=== PATIENT | female | born 1940 | race Caucasian/White ===

== ENCOUNTER 2024-12-16 19:00 | Emergency (ER) | payer OTHER ==
[2024-12-16] MEDS ORDERED: HYDROCODONE/APAP 5/325 MG TAB ONE (19:25)
--- NOTE | 2024-12-16 20:22 | RAD REPORT ---
EXAMINATION: Femur Left CLINICAL INDICATION: Female, 84 years old. PAIN COMPARISON: PET CT 08/28/2008 VIEWS: As above FINDINGS: Left hip arthroplasty. There is a mildly displaced fracture at the subtrochanteric region that likely involves the arthroplasty. Peripheral vascular calcifications. Plate and screw at the left tibia.. IMPRESSION: Findings concerning for a left-sided periprosthetic subtrochanteric fracture with slight displacement .
--- NOTE | 2024-12-16 20:24 | RAD REPORT ---
EXAMINATION: Pelvis CLINICAL INDICATION: Female, 84 years old. fall COMPARISON: No prior exam. FINDINGS: Status post left hip arthroplasty. Mild deformity at the left superior inferior pubic ramus may repre sent a subacute or remote obturator ring fracture. No definite acute fracture. IMPRESSION: Left subtrochanteric periprosthetic fracture. Possible subacute or chronic left obturator ring fractu re.
--- NOTE | 2024-12-16 20:25 | RAD REPORT ---
EXAMINATION: Elbow Left 3 View CLINICAL INDICATION: Female, 84 years old. PAIN COMPARISON: No prior exam. VIEWS: As above FINDINGS: No acute fracture. No malalignment/dislocation. No significant focal degenerative change. Other: n/a IMPRESSION: No acute osseous abnormality.
--- NOTE | 2024-12-16 21:27 | RAD REPORT ---
EXAMINATION: CT ABDOMEN AND PELVIS WITHOUT CONTRAST CLINICAL INDICATION: Female, 84 years old.fall TECHNIQUE: CT abdomen and pelvis was performed, without IV contrast, as per department protocol. Axia l, sagittal and coronal reconstructions were obtained. One or more of the following dose reduction techniques were used: Automated exposure control, adjustment of the mA and/or kV according to the pat ient size, and/or iterative reconstruction. Unless otherwise specified, incidental findings do not require dedicated imaging follow-up. [id number]. IV CONTRAST: Not administered. COMPARISON: PET/CT 08/28/2008 FINDINGS: The lack of intravenous contrast limits the sensitivity of this exam for evaluation of solid visceral organs, vascular structures, and retroperitoneum. LOWER CHEST: Nodular airspace disease present in the right middle lobe and left lower lobe.No signifi cant pericardial effusion. Multivessel coronary artery calcifications. UPPER GI: No significant abnormality. LIVER: Benign appearing low density liver lesions. No suspicious mass. GALLBLADDER/BILE DUCTS: Cholelithiasis. Common bile duct measuring 8 mm likely within normal limits g iven the patient's age.? PANCREAS: No mass, ductal dilation, or fortunato-pancreatic fluid. SPLEEN: Unremarkable. ADRENALS: No adrenal masses. KIDNEYS AND URETERS: No hydronephrosis.Limited evaluation for renal lesions in the absence of IV cont rast.Pelvic caliectasis and hydroureter. Possible punctate renal calculi bilaterally. ABDOMINAL AORTA AND OTHER VESSELS: Mild atherosclerotic changes. PERITONEUM: No abnormal free fluid. No free air. LYMPH NODES: No pathologic lymphadenopathy. ABDOMINAL WALL: Unremarkable SMALL BOWEL/COLON: Small bowel has normal course and caliber. No colonic wall thickening or pericolon ic inflammatory changes.Moderate colonic stool. URINARY BLADDER: Underdistended but grossly unremarkable. REPRODUCTIVE ORGANS: Uterus surgically absent. No adnexal abnormality. MUSCULOSKELETAL: Mild superior end plate deformity at L5 is likely chronic. Left hip arthroplasty. Th ere is a subtrochanteric fracture that extends to the stem of the left hip arthroplasty and has up to 8 mm of displacement. Peripheral vascular calcifications. Remote left obturator ring fracture. Lik eric chronic bilateral sacral insufficiency fractures. Acute versus subacute right obturator ring fracture. This is nondisplaced and may be insufficiency related as well. ADDITIONAL FINDINGS: None. IMPRESSION: 1. Left subtrochanteric femur fracture which involves the left hip arthroplasty. 2. Probable subacute/chronic sacral insufficiency fractures. Right obturator ring fracture may be fro m insufficiency. 3. Nodular airspace disease in the lower lungs may reflect mild pneumonia and/or pneumonitis such as from aspiration. 4. Additional findings as noted above.
--- NOTE | 2024-12-16 22:24 | ER ---
Nurse's Notes [facility] Name: Renetta Zhao Age: 84 yrs Sex: Female : 1940 Arrival Date: 12/16/2024 Time: 19:00 Bed 18 Private MD: Diagnosis: Fall on same level, unspecified;Displaced Left Periprosthetic Subtrochanteric Fracture;UTI/ Urinary tract infection, site not specified;Hypokalemia Presentation: 12/16 19:14 Chief complaint: EMS states: Fall. Coronavirus screen: Client denies travel out of the [place] in the last 14 days. Ebola Screen: No symptoms or risks identified at this time. Initial Sepsis Screen: Does the patient meet any 2 criteria? No. Patient's initial sepsis screen is negative. Does the patient have a suspected source of infection? No. Patient's initial sepsis screen is negative. Risk Assessment: Do you want to hurt yourself or someone else? Patient reports no desire to harm self or others. Note Pt fell at home and complains of pain to her left hip and left shoulder pain of 6/10. Alert and oriented, afebrile, elevated BP of 207/85. On RA, no respiratory distress noted. Hx left hip joint ball replacement and a plate and screws in left mendieta, and left breast CA with masectomy. Onset of symptoms was December 16, 2024 at 17:00. 19:14 Method Of Arrival: EMS: [facility] ay 19:14 Acuity: MELL 3 ay Triage Assessment: 19:15 General: Appears in no apparent distress. uncomfortable, Behavior is calm, cooperative. ay Pain: Complains of pain in left hip, left shoulder Pain currently is 6 out of 10 on a pain scale. Quality of pain is described as. 19:15 EENT: No signs and/or symptoms were reported regarding the EENT system. Neuro: Level of ay Consciousness is awake, alert, Oriented to person, place, time, situation, Speech is normal. Cardiovascular: Capillary refill < 3 seconds. Respiratory: Airway is patent Respiratory effort is even, unlabored, Respiratory pattern is regular, symmetrical. GI: No signs and/or symptoms were reported involving the gastrointestinal system. : No signs and/or symptoms were reported regarding the genitourinary system. Derm: No signs and/or symptoms reported regarding the dermatologic system. Musculoskeletal: Reports pain in left hip and left shoulder. Injury Description: Bruise sustained to left elbow. Historical: - Allergies: 20:22 Sulfa (Sulfonamide Antibiotics); ay 20:22 Codeine; ay - Immunization history:: Adult Immunizations up to date. - Infectious Disease History:: Denies. - Social history:: Smoking status: Patient denies any tobacco usage or history of. Screenin:30 [facility] ED Fall Risk Assessment (Adult) History of falling in the last 3 months, ay including since admission Yes- single mechanical fall (1 pt) Confusion or Disorientation No (0 pts) Intoxicated or Sedated No (0 pts) Impaired Gait No (0 pts) Mobility Assist Device Used No (0 pt) Altered Elimination No (0 pt) Score/Fall Risk Level 0 - 2 = Low Risk Oriented to surroundings, Maintained a safe environment, Educated pt \T\ family on fall prevention, incl call for assistance when getting out of bed. Abuse screen: Denies threats or abuse. Denies injuries from another. Nutritional screening: No deficits noted. Tuberculosis screening: No symptoms or risk factors identified. Assessment: 20:30 General: See Triage Assessments. ay 12/17 00:38 Reassessment: Patient appears in no apparent distress at this time. ay Vital Signs: 12/16 19:14 BP 207 / 85; Pulse 74; Resp 20; Temp 97.6; Pulse Ox 96% on R/A; ay 21:53 BP 190 / 80; Pulse 84; Resp 17; Pulse Ox 97% on R/A; ay 23:00 BP 154 / 63; Pulse 78; Resp 17; Pulse Ox 94% on 2 lpm NC; ay 12/17 00:37 BP 138 / 58; Pulse 83; Resp 20; Pulse Ox 94% on 2 lpm NC; ay [place] Coma Score: 12/16 20:30 Eye Response: spontaneous(4). Motor Response: obeys commands(6). Verbal Response: ay oriented(5). Total: 15. ED Course: 19:14 Patient arrived in ED. rv1 19:16 Gulshan Lopez PA is PHCP. cp 19:16 Valentín Gallegos MD is Attending Physician. cp 19:21 Jai Delaney RN is Primary Nurse. ay 20:06 XRAY Pelvis In Process Unspecified. EDMS 20:06 XRAY Elbow LEFT 3 view In Process Unspecified. EDMS 20:06 XRAY Femur LEFT In Process Unspecified. EDMS 20:22 Triage completed. ay 20:30 Inserted saline lock: 22 gauge. Oxygen administration via nasal cannula \T\ 2L/min. ay 21:00 Patient has correct armband on for positive identification. Bed in low position. Call ay light in reach. Side rails up X2. Adult w/ patient. 21:06 CT Abd/Pelvis - Without Contrast In Process Unspecified. EDMS 22:20 XRAY Chest (1 view) In Process Unspecified. EDMS 12/17 01:11 Patient transferred, IV remains in place. ay 01:12 No provider procedures requiring assistance completed. ay 01:12 Arm band placed on right wrist. ay Administered Medications: 12/16 19:29 Drug: HYDROcodone-acetaminophen PO 5 mg-325 mg 1 tabs PO once Route: PO; ay 12/17 01:08 Follow up: Response: No adverse reaction ay 12/16 23:07 Drug: Ondansetron IVP 4 mg IVP once; over 2 minutes Route: IVP; Site: right antecubital;ay 12/17 01:08 Follow up: Response: No adverse reaction ay 12/16 23:07 Drug: hydrALAZINE IVP 10 mg IVP once Route: IVP; Site: right antecubital; ay 12/17 01:08 Follow up: Response: No adverse reaction ay 12/16 23:08 Drug: fentaNYL (PF) IVP 25 mcg IVP once Route: IVP; Site: right antecubital; ay 12/17 01:08 Follow up: Response: No adverse reaction ay 00:29 Drug: Potassium PO Effervescent Tablet 50 mEq PO once; dissolve in 4 ounces of water or ay juice Route: PO; 01:07 Follow up: Response: No adverse reaction ay 00:29 Drug: Potassium Chloride IV 20 mEq IV at calculated rate once; administer over 1-2 ay hours Route: IV; Rate: calculated rate; Site: right antecubital; 01:07 Follow up: Response: No adverse reaction ay 01:09 Follow up: Response: No adverse reaction; IV Status: Infusion continued upon transfer ay 00:29 Drug: Rocephin IV 1 grams IV at calculated rate once; Given slow IV push per pharmacy ay instructions Route: IV; Rate: calculated rate; Site: right antecubital; 01:07 Follow up: Response: No adverse reaction ay 01:09 Follow up: IV Status: Infusion continued upon transfer ay 00:29 Drug: NS 0.9% IV 500 ml 500 ml IV at 1 bolus once; to be given as a bolus over 60 ay minutes Volume: 500 ml; Route: IV; Rate: 1 bolus; Site: right antecubital; 01:08 Follow up: IV Status: Infusion continued upon transfer ay 01:07 Drug: fentaNYL (PF) IVP 25 mcg IVP once Route: IVP; Site: right antecubital; ay 01:10 Follow up: Response: No adverse reaction ay Medication: 01:12 VIS not applicable for this client. ay Outcome: 12/16 22:24 ER care complete, transfer ordered by MD. granda 12/17 01:11 Transferred to [facility], ay Condition: stable Instructed on the need for transfer, 01:13 Patient left the ED. ay Signatures: Dispatcher [employer] EDMS Gulshan Lopez PA PA cp Villegas, Rebecca rv1 Jai Delaney, RN RN ay
--- NOTE | 2024-12-16 22:24 | EDPHYS ---
Physician Documentation [facility] Name: Renetta Zhao Age: 84 yrs Sex: Female : 1940 Arrival Date: 12/16/2024 Time: 19:00 Bed 18 Private MD: ED Physician Valentín Gallegos HPI: 12/16 19:25 This 84 yrs old Female presents to ER via EMS with complaints of Fall Injury. cp 19:25 Details of fall: The patient fell from an upright position, while walking. Onset: The cp symptoms/episode began/occurred just prior to arrival. Associated injuries: The patient sustained pelvis and left femur, painful injury. Patient reports she was carrying groceries when she fell after tripping and injuring left elbow and left upper leg. Patient reports history of left hip replacement surgery. Historical: - Allergies: 20:22 Sulfa (Sulfonamide Antibiotics); ay 20:22 Codeine; ay - Immunization history:: Adult Immunizations up to date. - Infectious Disease History:: Denies. - Social history:: Smoking status: Patient denies any tobacco usage or history of. ROS: 19:30 MS/extremity: Positive for pain, tenderness, of the left elbow and left upper leg, cp 19:30 Eyes: Negative for injury, pain, redness, and discharge, cp 19:30 Constitutional: Negative for body aches, chills, fever, poor PO intake, 19:30 Cardiovascular: Negative for chest pain, palpitations, 19:30 Respiratory: Negative for cough, shortness of breath, wheezing, 19:30 Abdomen/GI: Negative for vomiting, diarrhea, constipation, 19:30 Neuro: Negative for altered mental status, headache, loss of consciousness, syncope, weakness, 19:30 All other systems are negative, Exam: 19:33 Constitutional: The patient appears in no acute distress, alert, awake, cp non-diaphoretic, non-toxic, well developed, uncomfortable, thin 19:33 Head/Face: Normocephalic, atraumatic. cp 19:33 Eyes: Periorbital structures: appear normal, Pupils: equal, round, and reactive to light and accomodation, Extraocular movements: intact throughout, Conjunctiva: normal, no exudate, no injection, Sclera: no appreciated abnormality, Lids and lashes: appear normal, bilaterally, 19:33 ENT: External ear(s): are unremarkable, Nose: is normal, Mouth: Lips: moist, Oral mucosa: moist, Posterior pharynx: Airway: no evidence of obstruction, patent, 19:33 Neck: C-spine: vertebral tenderness, is not appreciated, crepitus, is not appreciated, ROM/movement: limited range of motion, is not appreciated, nuchal rigidity, is not appreciated, 19:33 Chest/axilla: Inspection: normal, Palpation: crepitus, is not appreciated, tenderness, is not appreciated, 19:33 Cardiovascular: Rate: normal, Edema: is not appreciated, JVD: is not appreciated, 19:33 Respiratory: the patient does not display signs of respiratory distress, Respirations: normal, no use of accessory muscles, no retractions, labored breathing, is not present, Breath sounds: are clear throughout, no decreased breath sounds, no stridor, no wheezing, 19:33 Abdomen/GI: Inspection: abdomen appears normal, Palpation: abdomen is soft and non-tender, in all quadrants, 19:33 Back: vertebral tenderness, is not appreciated, 19:33 Musculoskeletal/extremity: Extremities: noted in the left elbow: abrasion, tenderness, There is no evidence of decreased ROM, deformity, noted in the left upper leg: pain, tenderness, ROM: limited passive range of motion due to pain, in the left hip, 19:33 Neuro: Orientation: to person, place \T\ time. Mentation: is normal, Motor: moves all fours, no focal deficits, Vital Signs: 19:14 BP 207 / 85; Pulse 74; Resp 20; Temp 97.6; Pulse Ox 96% on R/A; ay 21:53 BP 190 / 80; Pulse 84; Resp 17; Pulse Ox 97% on R/A; ay 23:00 BP 154 / 63; Pulse 78; Resp 17; Pulse Ox 94% on 2 lpm NC; ay 03 00:37 BP 138 / 58; Pulse 83; Resp 20; Pulse Ox 94% on 2 lpm NC; ay [place] Coma Score: 12/16 20:30 Eye Response: spontaneous(4). Motor Response: obeys commands(6). Verbal Response: ay oriented(5). Total: 15. MDM: 19:17 Medical Screening Exam initiated cp 21:35 Data reviewed: vital signs, nurses notes, radiologic studies, CT scan, plain films, and cp as a result, I will transfer patient for trauma and orthopedic services. 21:35 I considered the following discharge prescriptions or medication management in the emergency department Medications were administered in the Emergency Department. See MAR. Counseling: I had a detailed discussion with the patient and/or guardian regarding the historical points, exam findings, and any diagnostic results supporting the discharge/admit diagnosis, radiology results, the need to transfer to another facility, for higher level of care, [facility] does not immediately have the required specialist. 12/16 21:52 Order name: Basic Metabolic Panel; Complete Time: 23:52 cp 12/16 23:53 Interpretation: Normal except: K 2.4; GLUC 139; GFR 87. cp 12/16 21:52 Order name: CBC with Diff cp 12/16 23:53 Interpretation: Normal except: WBC 16.80; RBC 3.63; HGB 11.3; HCT 33.8; BEBA% 94.0; LYM% cp 2.7; MN% 2.9; NEUT A 15.8; LYMA 0.5. 12/16 21:52 Order name: LFT's; Complete Time: 23:52 cp 12/16 21:52 Order name: Magnesium; Complete Time: 23:52 cp 12/16 21:52 Order name: NT PRO-BNP; Complete Time: 23:52 cp 12/16 21:52 Order name: PT-INR; Complete Time: 23:52 cp 12/16 21:52 Order name: Troponin HS; Complete Time: 23:52 cp 12/16 21:52 Order name: Ptt, Activated; Complete Time: 23:52 cp 12/16 21:52 Order name: Urinalysis W/Microscopic; Complete Time: 23:52 cp 12/16 19:18 Order name: XRAY Pelvis; Complete Time: 21:19 cp 12/16 21:20 Interpretation: Report reviewed. cp 12/16 19:18 Order name: XRAY Elbow LEFT 3 view; Complete Time: 21:19 cp 12/16 21:20 Interpretation: Report reviewed. cp 12/16 19:18 Order name: XRAY Femur LEFT; Complete Time: 21:19 cp 12/16 20:23 Order name: CT Abd/Pelvis - Without Contrast; Complete Time: 21:31 cp 12/16 21:33 Interpretation: Report reviewed. 12/16 21:52 Order name: XRAY Chest (1 view); Complete Time: 22:39 12/16 21:52 Order name: Cardiac monitoring 12/16 21:52 Order name: EKG - Nurse/Tech 12/16 21:52 Order name: IV Saline Lock 12/16 21:52 Order name: Labs collected and sent 12/16 21:52 Order name: O2 Per Protocol 12/16 21:52 Order name: O2 Sat Monitoring 12/16 21:52 Order name: Martinez cp Administered Medications: 19:29 Drug: HYDROcodone-acetaminophen PO 5 mg-325 mg 1 tabs PO once Route: PO; ay 12/17 01:08 Follow up: Response: No adverse reaction ay 12/16 23:07 Drug: Ondansetron IVP 4 mg IVP once; over 2 minutes Route: IVP; Site: right antecubital;ay 12/17 01:08 Follow up: Response: No adverse reaction 12/16 23:07 Drug: hydrALAZINE IVP 10 mg IVP once Route: IVP; Site: right antecubital; ay 12/17 01:08 Follow up: Response: No adverse reaction ay 12/16 23:08 Drug: fentaNYL (PF) IVP 25 mcg IVP once Route: IVP; Site: right antecubital; ay 12/17 01:08 Follow up: Response: No adverse reaction ay : Drug: Potassium PO Effervescent Tablet 50 mEq PO once; dissolve in 4 ounces of water or ay juice Route: PO; 01:07 Follow up: Response: No adverse reaction ay : Drug: Potassium Chloride IV 20 mEq IV at calculated rate once; administer over 1-2 ay hours Route: IV; Rate: calculated rate; Site: right antecubital; 01:07 Follow up: Response: No adverse reaction ay 01:09 Follow up: Response: No adverse reaction; IV Status: Infusion continued upon transfer ay :29 Drug: Rocephin IV 1 grams IV at calculated rate once; Given slow IV push per pharmacy ay instructions Route: IV; Rate: calculated rate; Site: right antecubital; 01:07 Follow up: Response: No adverse reaction ay : Follow up: IV Status: Infusion continued upon transfer ay 00:29 Drug: NS 0.9% IV 500 ml 500 ml IV at 1 bolus once; to be given as a bolus over 60 ay minutes Volume: 500 ml; Route: IV; Rate: 1 bolus; Site: right antecubital; 01:08 Follow up: IV Status: Infusion continued upon transfer ay 01:07 Drug: fentaNYL (PF) IVP 25 mcg IVP once Route: IVP; Site: right antecubital; ay 01:10 Follow up: Response: No adverse reaction ay Disposition Summary: 12/16/24 22:24 Transfer Ordered Notes: Transfer Location: [facility] cp Reason: Higher level of care cp Condition: Stable cp Problem: new cp Symptoms: have improved cp Accepting Physician: DR Joyce(12/17/24 01:13) ay Diagnosis - Fall on same level, unspecified cp - Displaced Left Periprosthetic Subtrochanteric Fracture cp - UTI/ Urinary tract infection, site not specified cp - Hypokalemia cp Forms: - Medication Reconciliation Form cp - SBAR form cp Signatures: Dispatcher [employer] EDMS Gulshan Lopez PA PA cp Yakubu, Awudu RN RN ay Corrections: (The following items were deleted from the chart) 12/16 21:52 21:52 BASIC METABOLIC PANEL+C.LAB.BRZ ordered. EDMS EDMS 21:52 21:52 CBC+H.LAB.BRZ ordered. EDMS EDMS 21:52 21:52 HEPATIC FUNCTION+C.LAB.BRZ ordered. EDMS EDMS 21:52 21:52 MAGNESIUM+C.LAB.BRZ ordered. EDMS EDMS 21:52 21:52 PROBNP+C.LAB.BRZ ordered. EDMS EDMS 21:52 21:52 PROTIME (+INR)+COAG.LAB.BRZ ordered. EDMS EDMS 21:52 21:52 Troponin High Sensitivity+C.LAB.BRZ ordered. EDMS EDMS 21:52 21:52 PTT, ACTIVATED+COAG.LAB.BRZ ordered. EDMS EDMS 21:52 21:52 Chest Single View+RAD.RAD.BRZ ordered. EDMS EDMS 21:52 21:52 Urinalysis W/Microscopic+U.LAB.BRZ ordered. EDMS EDMS 22:41 22:24 doctor cp cp 22:45 22:41 doctor cp cp 23:59 22:45 DR Maria Del Carmen granda cp 12/17 01:13 12/16 23:59 DR Joyce cp ay
--- NOTE | 2024-12-16 22:36 | RAD REPORT ---
EXAM: Chest Single View HISTORY: 84 years Female fall COMPARISON: None. FINDINGS: LUNGS/PLEURA: Scattered areas of mild reticulonodular opacities. CARDIAC/MEDIASTINUM: The cardiac silhouette is within normal limits. UPPER ABDOMEN: No significant abnormality. BONES: No acute abnormality. LINES/TUBES/OTHER: Surgical clips in the left axilla. IMPRESSION: Mild scattered reticulonodular opacities likely reflecting infection or inflammation. No consolidativ e airspace disease
[2024-12-16] MEDS ORDERED: ONDANSETRON 4 MG/2 ML VIAL ONE (22:52)
[2024-12-16] MEDS ORDERED: HYDRALAZINE HCL 20 MG/ML VIAL ONE (22:52)
[2024-12-16] MEDS ORDERED: FENTANYL CITR 100 MCG/2 ML ONE (22:53)
[2024-12-16 22:54] LABS: Absolute Basophils 0.1 K/uL (0-0.5); Absolute Lymphocytes (CBC) 0.5 K/uL (0.7-4.9); Absolute Monocytes 0.5 K/uL (0.1-1.3); Absolute Neutrophil 15.8 K/uL (1.8-8.0); Basophils % 0.3 % (0-1.3); Eosinophils % 0.1 % (0-4.4); Hematocrit 33.8 % (36.0-45.0); Hemoglobin 11.3 g/dL (12.0-15.0); Lymphocytes % 2.7 % (15.3-44.8); MCH 31.2 pg (27.0-35.0); MCHC 33.5 g/dL (32.0-36.0); MCV 93.1 fL (80-100); MPV 8.6 fL (7.6-11.3); Monocytes % 2.9 % (3.3-12.3); Platelets 248 thou/uL (152-406); RBC Red Blood Cell Count 3.63 M/uL (3.86-4.86); Red Cell Distribution Width 13.1 % (12.1-15.2)
[2024-12-16 22:58] LABS: Specific Gravity 1.009 (1.005-1.030); Sqamous Epithelial <5 /HPF (None Seen); Urine Bacteria <20 /HPF (<20); Urine Bilirubin NEGATIVE (Negative); Urine Blood Negative (Negative); Urine Clarity Extremely Turbid (Clear); Urine Color Light-Yellow (Yellow); Urine Crystals Unidentified Few /HPF (None Seen); Urine Culture Reflex Order NOT NEEDED; Urine Glucose NEGATIVE (Negative); Urine Ketones NEGATIVE (Negative); Urine Micro Reflex YN NO BILL MICROSCOPIC; Urine Nitrite 1+ (Negative); Urine Protein NEGATIVE (Negative); Urine RBC <5 /HPF (None Seen); Urine Urobilinogen Normal (Normal); Urine WBC <5 /HPF (<5); Urine Yeast (Budding) Occasional /HPF (None Seen); Urine pH 7.5 (5.0-7.0)
[2024-12-16 23:06] LABS: PT Prothrombin Time 12.4 SECONDS (10.0-13.0); PTT, Activated Partial Thromb 31.3 SECONDS (24.3-36.9); Protime INR 1.09
[2024-12-16 23:38] LABS: Albumin 3.2 g/dL (3.4-5.0); Albumin/Globulin Ratio 0.8 (1.1-1.8); Anion Gap 8.4 mEq/L (5.0-15.0); Bilirubin Direct 0.2 mg/dL (0-0.2); Bilirubin Indirect, Calculated 0.4 mg/dL (0.2-0.8); Bilirubin Total 0.6 mg/dL (0.2-1.0); Globulin 4.1 g/dL (2.3-3.5); Magnesium 2.2 mg/dL (1.6-2.4); Potassium 2.4 mEq/L (3.5-5.1); Protein, Total 7.3 g/dL (6.4-8.2); Troponin High Sensitivity 14.3 pg/mL (<58.9)
[2024-12-17] MEDS ORDERED: POTASSIUM 25 MEQ EFFERV TAB ONE (00:14)
[2024-12-17] MEDS ORDERED: CEFTRIAXONE 1000 MG/VIAL ONE (00:14)
[2024-12-17] MEDS ORDERED: NA CHLORIDE 0.9% 500 ML ONE (00:14)
[2024-12-17] MEDS ORDERED: KCL 20 MEQ/100 mL IVPB 100 ML IV ONE (00:16)
[2024-12-17] MEDS ORDERED: FENTANYL CITR 100 MCG/2 ML ONE (00:49)
[2024-12-17 01:33] VITALS: TEMP 97.6
[2024-12-17 01:40] VITALS: O2SAT 94
[2024-12-17 01:41] VITALS: BP 138/58
[2024-12-17 02:13] LABS: Blood Morphology Comment NOT SEEN (NOT SEEN); Platelet Estimate ADEQ; White Blood Cell Scan OK (OK)
== END 2024-12-17 01:13 | disposition short-term general hospital (02) ==
LOC: ER 19:00
DX: S72.22XA Displaced subtrochanteric fracture of left femur, initial encounter for closed fracture (principal); M97.02XA Periprosthetic fracture around internal prosthetic left hip joint, initial encounter; W18.30XA Fall on same level, unspecified, initial encounter; N39.0 Urinary tract infection, site not specified; E87.6 Hypokalemia
CPT/HCPCS: 96365; 96368; 85025; 81001; 80048; 36415; 83735; 85610; 80076; 85730; 84484; 83880; 74176; 71045; 72170; 73080; 73552; 96375; 99285; J3480; J0360; J3010 ×2; J2405; J7040; J0696

== ENCOUNTER 2024-12-22 11:32 | Emergency (ER) | payer OTHER ==
--- OUTSIDE RECORDS SUMMARY | 2024-12-22 11:36 | XMS REPORT | Continuity of Care Document ---
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 12/17/2024 Chloride Lvl 103 12/17/2024 CO2 Lvl 30.8 12/17/2024 BUN 12 12/17/2024 Creatinine Lvl 0.72 12/17/2024 Glucose Lvl 148 (H) 12/17/2024 Imaging: Trauma CT CHEST ABDOMEN PELVIS W IV CONTRAST Result Date: 12/17/2024 EXAM: CT CHEST WITH CONTRAST EXAM: CT ABDOMEN AND PELVIS WITH CONTRAST DATE: 12/17/2024 5:27 INDICATION: Trauma COMPARISON: None TECHNIQUE: Volumetric CT of the chest, abdomen and pelvis is acquired following intravenous administration of contrast. Axial, coronal and sagittal images are provided. FINDINGS: Arm Maker: Note made of left hip arthroplasty Lines and tubes: None. Lower Neck: Supraclavicular soft tissues are within normal limits. Thoracic Aorta and Mediastinum: No mediastinal hematoma or thoracic aortic injury. Normal heart and pericardium. Lungs, Pleura, Diaphragm: No pulmonary contusions. Patchy consolidation and nodular opacities noted within the left lower and right middle lobes may represent aspiration or multifocal infection. Multifocal bilateral renal parenchymal scarring most pronounced in the left upper lobe and anterior left apex with associated mild bronchiectasis and adjacent pleural thickening. No pleural effusion or pneumothorax. No diaphragmatic injury. Liver and biliary tree: No injury. Multiple hepatic cysts of varying sizes measuring up to 4.39 cm in size. Gallbladder: Distended gallbladder. No injury. Pancreas: No injury. Small, 1.1 cm cystic lesion within the body of the pancreas which may represent IPMN. Spleen: No injury. Adrenals: No injury. Kidneys and ureters: No injury. Bladder: No injury. Reproductive organs: No injury. Gastrointestinal tract: No injury. Peritoneum and retroperitoneum: No fluid collections or free air. Lymph nodes: Normal. Vasculature: No vascular injury. Aortoiliac atherosclerotic calcifications. Spine/ Bones: Left hip arthroplasty in normal alignment. Minimally displaced perihardware proximal left femoral diaphyseal fracture is incompletely visualized. Acute minimally displaced fracture is noted through the root of the right superior pubic ramus (series ). Chronic healed left inferior pubic ramus fracture. Degenerative changes at the pubic symphysis. Chronic sclerosis along the bilateral sacrum. Multilevel degenerative changes of the thoracolumbar spine with levoscoliosis of the lumbar spine. Chronic deformity of the left humeral neck. Soft tissues: Normal. IMPRESSION: 1. Partially visualized left proximal femoral diaphyseal periprosthetic fracture. 2. Acute minimally displaced fracture through the root of the right superior pubic ramus (). 3. Patchy consolidative and nodular opacities within the left lower and right middle lobes concerning for aspiration or infection. Multifocal bilateral renal parenchymal scarring most pronounced in the left apex. 4. Multiple hepatic cysts. 5. Small cystic lesion within the body of the pancreas measuring 1.1 cm which could represent IPMN. Recommend correlation with nonemergent pancreatic protocol MRI findings. 6. Other incidental/chronic findings as described in the body of the report. Report finalized by: Bebeto Lee MD 12/17/2024 6:[address] CERVICAL SPINE WO IV CONTRAST Result Date: 12/17/2024 EXAM: CT CERVICAL SPINE WITHOUT CONTRAST DATE: 12/17/2024 5:27 INDICATION: Trauma COMPARISON: None TECHNIQUE: Volumetric acquisition of the cervical spine without contrast. Axial, sagittal and coronal reconstructions. IV contrast: None. DLP: Please see CT dose report. FINDINGS: The spine is imaged from the skull base to the level of T2. No acute fracture or malalignment is identified. Exaggerated cervical lordosis. Multilevel degenerative changes of the spine are visualized most pronounced from C4-C7 levels with disc space narrowing, vacuum disc phenomenon, degenerative endplate changes, multilevel small osteophytes, facet and uncovertebral degeneration. Vertebral body heights are preserved. The pre and paravertebral soft tissues are within normal limits. No apical pneumothorax. Note made of biapical scarring and mild left apical bronchiectasis. IMPRESSION: 1. No acute fracture or malalignment 2. Multilevel degenerative changes of the spine, most pronounced from C4-C7 levels, as described above Report finalized by: Bebeto Lee MD 12/17/2024 5:[address] BRAIN WO IV CONTRAST Result Date: 12/17/2024 EXAM: CT BRAIN WITHOUT CONTRAST DATE: 12/17/2024 5:27 INDICATION: Trauma COMPARISON: None. TECHNIQUE: Axial CT images of the brain were obtained. Sagittal and coronal reformats. IV contrast: None DLP: Refer to CT protocol form FINDINGS: No acute intracranial hemorrhage or extra-axial collection. No midline shift or mass effect. No brain parenchymal edema. The ventricles and sulci are enlarged from chronic brain parenchymal volume loss. Periventricular white matter hypoattenuation is nonspecific but likely represents chronic microvascular ischemic changes. The skull base, calvarium, and included facial bones have no acute fracture. The paranasal sinuses and mastoid air cells are predominantly clear. Bilateral pseudophakia. IMPRESSION: * No acute intracranial hemorrhage or calvarial fracture. Report finalized by: Bianca Barajas MD 12/17/2024 5:54 XR knee 3 views left Result Date: 12/17/2024 EXAM: XR KNEE 3 VIEWS LEFT DATE: 12/17/2024 4:53 INDICATION: Trauma, pain COMPARISON: None. TECHNIQUE: 3 views of the knee FINDINGS: No acute fracture or malalignment is identified. Diffuse osseous demineralization. Faint chondrocalcinosis of the knee. No knee joint effusion is present. Proximal tibial hardware to the extent visualized is intact. No soft tissue abnormality is identified. IMPRESSION: 1. No acute fracture or malalignment 2. Chondrocalcinosis of the knee 3. Diffuse osseous demineralization Report finalized by: Bebeto Lee MD 12/17/2024 5:08 XR hip 2-3 views left Result Date: 12/17/2024 EXAM: XR LEFT HIP 2-3 VIEWS EXAM: XR LEFT FEMUR 2 VIEWS DATE: 12/17/2024 4:00 INDICATION: Trauma COMPARISON: None. TECHNIQUE: 2-3views of the hip, 2 views of the femur FINDINGS: Diffuse osseous demineralization. Pelvis: No acute fracture or malalignment is identified. No pubic symphysis or sacroiliac joint diastases. Chronic healed left inferior pubic ramus fracture. Hip/Femur: Left hip arthroplasty in normal alignment. Minimally displaced periprosthetic proximal femoral diaphyseal fracture is visualized. No evidence of hardware complication. Distal femur is intact. Partially visualized proximal tibial hardware. Note made of vascular calcifications. IMPRESSION: 1. Minimally displaced periprosthetic proximal femoral diaphyseal fracture 2. Left hip arthroplasty in normal alignment 3. Report finalized by: Bebeto Lee MD 12/17/2024 4:40 XR femur left 2+ views Result Date: 12/17/2024 EXAM: XR LEFT HIP 2-3 VIEWS EXAM: XR LEFT FEMUR 2 VIEWS DATE: 12/17/2024 4:00 INDICATION: Trauma COMPARISON: None. TECHNIQUE: 2-3views of the hip, 2 views of the femur FINDINGS: Diffuse osseous demineralization. Pelvis: No acute fracture or malalignment is identified. No pubic symphysis or sacroiliac joint diastases. Chronic healed left inferior pubic ramus fracture. Hip/Femur: Left hip arthroplasty in normal alignment. Minimally displaced periprosthetic proximal femoral diaphyseal fracture is visualized. No evidence of hardware complication. Distal femur is intact. Partially visualized proximal tibial hardware. Note made of vascular calcifications. IMPRESSION: 1. Minimally displaced periprosthetic proximal femoral diaphyseal fracture 2. Left hip arthroplasty in normal alignment 3. Report finalized by: Bebeto Lee MD 12/17/2024 4:40 Attila Vital MD Orthopedic Surgery PGY2 Cosigned by Micky Joyce MD at 12/18/2024 7:22 AM [employer] Orthopaedic Surgery [facility] History and Physical Notes Date/Time Note Provider Source 2024-12-17 10:30:40 Chief Complaint fall History Of Present Illness Patient is a 84 yoF with PMH of breast cancer in remission, previous left hip surgery 30 years ago after skiing accident, who is admitted for left periprosthetic femur fracture after mechanical fall. Patient taken through patient at bedside and daughter via phone. Patient was in the driveway with unloading groceries when she had a mechanical fall onto her left hip. There was documentation in chart with concern if she had been hit by low speed car, but after talking with who was there at the time of the fall, she was not hit by any car, she was unloading groceries in their driveway. Imaging shows left hip hemiarthroplasty with comminuted periprosthetic fracture. CT Chest shows patchy left lower opacities, but patient and family deny cough, SOB, or any sick contacts. Orthopedics evaluated, plan for non-operative management at this time, with PT/OT, pain control. Past Medical History Breast cancer Surgical History Left hip surgery Family History Denies FH of stroke Social History Tobacco denies Alcohol denies Drug denies Allergies Codeine and Sulfa antibiotics Medications (Not in a hospital admission) Review of Systems Constitutional: Negative for chills and fever. HENT: Negative for congestion. Respiratory: Negative for shortness of breath. Cardiovascular: Negative for chest pain. Gastrointestinal: Negative for nausea and vomiting. Last Recorded Vitals Blood pressure 132/61, pulse 92, temperature 36.3 ?C (97.3 ?F), temperature source Oral, resp. rate 20, height 1.575 m (5' 2"), weight 54.4 kg (120 lb), SpO2 92%. Physical Exam: Relevant Results reviewed Assessment & Plan Closed displaced fracture of proximal epiphysis of left femur, initial encounter ([facility]) Ortho on board, currently plan for non-operative management PT/OT Pain control Pre-op evaluation 1. Type of surgery: Low risk Orthopedic surgery 2. Cardiac Risk Estimation: per the Revised Cardiac Risk Index (RCRI), putting her in: RCI RISK CLASS I (0 risk factors, risk of major cardiac compl. appr. 0.5%) risk for cardiac complications 3. Pertinent exam findings: 4. Cardiovascular testing: ECG showed sinus rhythm, 5. METs: > 4 METS Currently non-operative per Ortho, but cleared to proceed if patient fails ambulation trial. Atelectasis Some LLE atelectasis vs early infiltrate; patient denies resp symptoms along with family If febrile, consider antibiotics Leukocytosis Likely 2/2 fall but also possible 2/2 UTI UTI (urinary tract infection) UA with mod LE, pos nitrate, 102 WBC Ceftriaxone started in meantime Follow up urine cx Normocytic anemia Admission hgb10.6 Transfuse to keep hgb >7 Medication management Med rec done with family via phone, no chronic meds Current Diet: Adult Diet Regular VTE Prophylaxis enoxaparin - 30 mg/0.3mL Disposition Home Pending PT/OT, pain conrol Clay Davalos MD Hospitalist [employer] [facility] Notes Date/Time Note Provider Source Referral ID Status Reason Start Date Expiration Date Visits Requested Visits Authorized [id number] Pending Review Specialty Services Required 12/21/2024 02/19/2025 999 999 [employer]* Home Health (Routine) - Pending Review Specialty Diagnoses / Procedures Referred By Maranda land Referred To Contact Home Health Services Diagnoses Periprosthetic fracture of hip, initial encounter Lupillo Nunez MD [address] [place] [id number] Phone: tel: fax: Referral ID Status Reason Start Date Expiration Date Visits Requested Visits Authorized [id number] Pending Review Specialty Services Required 12/19/2024 02/17/2025 999 [address] [id number] 17:23:39* * Auth/Cert (Routine) Specialty Diagnoses / Procedures Referred By Maranda land Referred To Contact Diagnoses Hypoxia Periprosthetic fracture of hip, initial encounter Closed displaced fracture of proximal epiphysis of left femur, initial encounter ([facility]) LEFT SUBTROCHANTERIC FRACTURE FALL FROM STANDING Procedures [facility] IP/OBS CARE SF/LOW MDM 40 MINUTES Lupillo Nunez MD [address] [place] [id number] Phone: tel: fax: [facility] ([facility]) [address] [place] [phone] Phone: tel: Referral ID Status Reason Start Date Expiration Date Visits Re quested Visits Authorized [id number] 1 1 [id number] 17:23:39 [id number] 17:23:39* Audit-C Score Answer Date of Assessment Author 0 12/17/2024 11:18 PM Kelli Bullard RN * Intimate Partner Violence Question Answer Date of Assessment Author Within the last year, have y ou been humiliated or emotionally abused in other ways by your partner or ex-partner? No 12/17/2024 11:18 PM Felicia Bullard RN Within the last year, have y ou been afraid of your partner or ex-partner? No 12/17/2024 11:18 PM Felicia Bullard RN Within the last year, have y ou been raped or forced to have any kind of sexual activity by your partner or ex-partner? No 12/17/2024 11:18 PM Felicia Bullard RN Within the last year, have y ou been kicked, hit, slapped, or otherwise physically hurt by your partner or ex-partner? No 12/17/2024 11:18 PM Felicia Bullard RN * * Over the past 2 weeks, how often have you been bothered by any of the following problems? Question Answer Date of Assessment Author Little interest or pleasure in doing things Not at all 12/17/2024 11:00 PM Felicia Bullard RN Feeling down, depressed, or hopeless Not at all 12/17/2024 11:00 PM Felicia Bullard RN Patient Health Questionnaire-2 Score 0 12/17/2024 11:00 PM Marnie Bullard RN * Calculated C-SSRS Risk Score (Lifetime/Recent) Answer Date of Assessment Author No Risk Indicated 12/17/2024 11:19 PM Kelli Damon RN * In the past month, have you... Question Answer Date of Assessment Author Had nightmares about the anthony nts or thought about the events when you did not want to? No 12/17/2024 11:00 PM Felicia Bullard RN Tried hard not to think abou t the events or went out of your way to avoid situations that reminded you of the events? No 12/17/2024 11:00 PM Felicia Bullard RN Been constantly on guard, watchful, or easily startled? No 12/17/2024 11:00 PM Kelli Damon RN [place] numb or detached from people, activities, or your surroundings? No 12/17/2024 11:00 PM Felicia Bullard RN [place] guilty or unable to sto p blaming yourself or others for the events or any problems the events may have caused? No 12/17/2024 11:00 PM Felicia Bullard RN * [place] Suicide Severity Rating Scale (Screener/Recent Self-Report) Question Answer Date of Assessment Author 1. Wish to be (Past 1 Month) No 12/17/2024 11:19 PM Felicia Bullard RN 2. Non-Specific Active Suici pradeep Thoughts (Past 1 Month) No 12/17/2024 11:19 PM [place] Bullard RN 6. Suicidal Behavior (Lifetime) No 11:19 PM Kelli Bullard RN * Primary Care PTSD Score Question Answer Date of Assessment Author Primary Care PTSD Total Score 1 12/17/2024 11:00 PM Kelli Bullard RN [id number] 17:23:39* Norma Kumar MD - 12/21/2024 3:16 PM [employer] Date of admission 12/17/2024 Date of Discharge TODAY Discharge Diagnosis Principal Problem: Closed displaced fracture of proximal epiphysis of left femur, initial encounter ([facility]) Active Problems: Leukocytosis Normocytic anemia Atelectasis UTI (urinary tract infection) Acute pain Resolved Problems: Medication management Pre-op evaluation Hypokalemia Consulting Services Attending Provider: Lupillo Nunez MD [phone] Provider: Lupillo Nunez MD [phone] Hospital [id number] woman with breast cancer in remission presented with a left periprosthetic femur fracture after falling. Nonoperative management was recommended. She will follow-up with Dr. Joyce to assess progress. Procedures this hospital stay* Cannot find OR case * Pertinent Physical Exam At Time of DischargePhysical Exam: Constitutional: General: She is not in acute distress. Appearance: She is not ill-appearing. Cardiovascular: Rate and Rhythm: Normal rate. Pulses: Normal pulses. Heart sounds: Normal heart sounds. Pulmonary: Effort: Pulmonary effort is normal. Abdominal: General: Bowel sounds are normal. Palpations: Abdomen is soft. Skin: General: Skin is warm and dry. Neurological: Mental Status: She is alert and oriented to person, place, and time. Psychiatric: Mood and Affect: Mood normal. Patient Condition at DischargeStable Discharge MedicationsNew acetaminophen (Tylenol) 500 MG tablet - 1,000 mg Every 8 hours aspirin 81 MG chewable tablet - 81 mg 2 times daily lidocaine 4 % patch patch - 1 patch Daily oxyCODONE (Roxicodone) 5 MG immediate release tablet - 5 mg Every 6 hours PRN potassium chloride CR (Klor-Con M10) 10 MEQ ER tablet - 10 mEq 2 times daily Continuedbrinzolamide (Azopt) 1 % ophthalmic suspension - 1 drop 2 times daily Test Results Pending At DischargePending Labs Order Current StatusAutomated Differential In process Complete Blood Count In process Complete Blood Count w/Diff and Platelet In process Urine Culture In process Issues Requiring Follow-Up Assessment & Plan Closed displaced fracture of proximal epiphysis of left femur, initial encounter ([facility]) Ortho evaluated, non-operative management PT OT for nonoperative management Scheduled Tylenol as needed oxycodone TDWB to LLE, WBAT to RLE Dr. Joyce or Jeannine Nath PA-C in 2 weeks after discharge. Please call [phone] Atelectasis Incentive spirometry pain control Leukocytosis resolved UTI (urinary tract infection) Urine culture no growth Ceftriaxone stopped Normocytic anemia no signs of active bleeding Acute pain Tylenol as needed oxycodone Discharge InstructionsSee AVS Outpatient Follow-UpAmbulatory referral to Home Health 12/19/2024 (Approximate) Home Health Services Referral to Home Health (specify) 12/21/2024 (Approximate) Home Health Services Follow Up In General Surgery 01/04/2025 Micky Joyce MD Disposition Home with Home Health [6] Time Spent on [id number] minutes [employer] [place] [id number] 17:23:39* Jacqueline Calderón, PT - 12/21/2024 12:49 PM [employer] Physical Therapy Treatment Session Note Patient Name: Bryan Zhao Today's Date: 12/21/2024 Preferred Language: Swazi Assessment & Plan Assessment: PT Assessment: Family training completed with daughter and spouse at bedside. Family demo'd understanding in assisting pt with mobility and addressed all questions/concerns. Will continues to see if still in house to maximize function. Prognosis: Good Medical Staff Made Aware: Yes RW delivered at bedside; wheelchair orders placed. Plan: Treatment Plan/Goals Established with Patient/Caregiver: Yes Treatment/Interventions: Balance training, Bed mobility training, Caregiver training, Functional activities, Gait training, Neuromuscular re-education, Patient education, Positioning, Posture/Body mechanics baring, Therapeutic exercises, Transfer training, Wheelchair assessment and management PT Plan: Skilled PT PT Frequency: 3-5 times per week until discharge Equipment Recommended: DME wheelchair, Walker- rolling PT Recommended Transfer Status: (X1-2 person assist) Therapy discharge recommendations are made by determining the patient's prior level of function, assessing current function level and establishing rehab potential. The overall discharge plan may be affected by input from Physicians, Care Coordination, medical condition/status, family support and insurance benefits. Subjective "I'm alright" Pain: Hartman-Vigil Face - 2; Neck (reported chronic neck pain 2/2 previous injury) Objective General Visit Information: PT Last Visit PT Received On: 12/21/24 General Others Present: spouse and daughter Precautions: UE Weight Bearing Status: FWB BUE LE Weight Bearing Status: TDWB LLE; WBAT RLE Medical Precautions: standard, fall Treatment Pt received semi-wilde position in bed. Agreeable to PT and cleared for session by RN. Daughter and spouse at bedside for family training Reviewed WB status, DME needs, safety with pt handling/body mechanics/mobility techniques, LE exercises, car transfers Pt performed supine LLE exercises Daughter assisted pt into sitting EOB towards R side - pt will be sleeping in recliner at home Daughter set-up wheelchair in prep for transfer Daughter and spouse assisted pt with STS and transfer bed > w/c toward R side via stand pivot with RW Daughter set up LLE leg rest and assisted pt with self propulsion in hallway Returned to bedside and daughter/spouse assisted with w/c > recliner via stand pivot on RLE Addressed all questions/concerns. Ended session with all needs met, call [facility] within reach. RN notified. NAD. Therapeutic exercise: Therapeutic Exercise Activity 1: AROM LLE heel slides x10 Position 1: Supine Therapeutic activity: Therapeutic Activity Therapeutic Activity Time Entry: 41 Therapeutic Activity 1: reviewed WB status, DME needs, safety with pt handling/body mechanics/mobility techniques, and LE exercises Bed Mobility: Bed Mobility 1: Level of Assistance 1: Partial/Mod assistance Bed Mobility Comments 1: daughter assisted with transition; pt will be sleeping in recliner at home Bed Mobility To/From: Supine to sit on EOB Transfers: Transfers 1: Level of Assistance 1: Partial/Mod assistance Trials/Comments 1: daughter and spouse assisted with transition Transfer To/From: [id number]/[id number], Bed, Wheelchair Assistive Devices And Adaptive Equipments: Walker, front-wheeled Transfers 2: Technique 2: Stand pivot (on RLE) Level of Assistance 2: Partial/Mod assistance Trials/Comments 2: pivoted on RLE, daughter and spouse assisted with transition Transfer To/From: Wheelchair, Bed Assistive Devices And Adaptive Equipments: Walker, front-wheeled Wheelchair Activities: Wheelchair Type: Manual Level of Assistance: Partial/Mod assistance Wheelchair Parts Management: Yes All Wheelchair Parts Management: Arm rest, Brakes, Leg rest Propulsion: Yes Propulsion Type 1: Manual Level 1: Level Method 1: Manual UE Propulsion, Right upper extremity, Left upper extremity Level of Assistance 1: Supervision/touching assistance, Partial/Mod assistance (min A-CGA) Description/Details 1: intermittent assist from daughter for propulsion, cuing for techniques with turning and self propulsion Propulsion 1: Propulsion Type 1: Manual Level 1: Level Method 1: Manual UE Propulsion, Right upper extremity, Left upper extremity Level of Assistance 1: Supervision/touching assistance, Partial/Mod assistance (min A-CGA) Description/Details 1: intermittent assist from daughter for propulsion, cuing for techniques with turning and self propulsion AM-PAC Basic Mobility: AM-PAC Basic Mobility Inpatient Turning in bed without bedrails: A Lot Lying on back to sitting on edge of flat bed: A Lot Bed to chair: A Lot Standing up from chair: A Lot Walk in room: A Lot Climbing 3-5 stairs: A Lot Mobility Inpatient Raw Score: 12 -HLM Goal: 4 Goals: Encounter Goals Encounter Goals (Active) STG - Misc 1 (Progressing) Start: 12/18/24 Expected End: 01/02/25Bed mobility independent or with assist of one care provider STG - Misc 2 (Progressing) Start: 12/18/24 Expected End: 01/02/25Transfers - SBA with LRAD or assist of one care provider STG - Misc 3 (Progressing) Start: 12/18/24 Expected End: 01/02/25Gt with RW 30 feet with SBA/CGA with LRAD or assist of one care provider STG - Misc 4 (Progressing) Start: 12/18/24 Expected End: 01/02/25W/C mobility independent for in home mobility or assist of one care provider Treatment Note: If this is the last documented treatment, then it will signify discharge from acute care prior to discharge from the therapy service and will serve as the discharge summary. Jacqueline Calderón PT [facility] [employer] * Jun Monroy OT - 12/20/2024 9:47 PM [employer] [employer] Treatment Session Note Patient Name: Bryan Zhao Today's Date: 12/20/2024 Preferred Language: Swazi Assessment & Plan Assessment: OT Assessment Results: Impaired ADL status, Impaired upper extremity strength, Impaired functional mobility Prognosis: Fair Evaluation/Treatment Tolerance: Patient tolerated treatment well Strengths: Support of extended family/friends Precautions: UE Weight Bearing Status: FWB BUE LE Weight Bearing Status: TDWB LLE; WBAT RLE Medical Precautions: standard, fall Plan: Treatment Plan/Goals Established with Patient/Caregiver: Yes OT Planned Treatments: Activities of Daily Living, Balance training, Caregiver training, Equipment training, Home program, Mobility training, Neuromuscular reeducation, Patient education, Safety education, Therapeutic activities, Therapeutic exercises OT Plan: Skilled OT OT Frequency: 2-4 times per week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
--- NOTE | 2024-12-22 12:48 | RAD REPORT ---
EXAM:Hip Left Wo Con CLINICAL HISTORY: Left hip pain TECHNIQUE: Computed axial tomography left hip obtained with coronal and sagittal reconstruction.One o r more of the following dose reduction techniques were used: Automated exposure control, adjustment of the mA and/or kV according to patient size, and/or iterative reconstruction. Unless otherwise spec ified, incidental findings do not require dedicated imaging follow-up. [id number]. COMPARISON: November 2021 FINDDINGS: Left hip arthroplasty has been performed. Subacute subtrochanteric fracture left femur. Lateral fracture fragment displaced 6 mm. Medial fractu re fragment displaced 10 mm. Subacute nondisplaced fracture medial left acetabulum Old appearing fractures involve pubic bones. Insufficiency fracture sacrum. Osteoporosis . IMPRESSION: Subacute subtrochanteric fracture left femur Subacute nondisplaced fracture medial left acetabulum Insufficiency fractures sacrum
[2024-12-22] MEDS ORDERED: NA CHLORIDE 0.9% 500 ML ONE (13:00)
[2024-12-22 13:09] LABS: Absolute Basophils 0.1 K/uL (0-0.5); Absolute Lymphocytes (CBC) 0.6 K/uL (0.7-4.9); Absolute Monocytes 0.5 K/uL (0.1-1.3); Absolute Neutrophil 6.9 K/uL (1.8-8.0); Basophils % 0.7 % (0-1.3); Eosinophils % 0.5 % (0-4.4); Hemoglobin 9.3 g/dL (12.0-15.0); MCH 31.7 pg (27.0-35.0); MCHC 34.4 g/dL (32.0-36.0); MCV 92.1 fL (80-100); MPV 8.1 fL (7.6-11.3); Monocytes % 6.3 % (3.3-12.3); Neutrophils % 85.5 % (41.7-73.7); Platelets 334 thou/uL (152-406); RBC Red Blood Cell Count 2.94 M/uL (3.86-4.86); Red Cell Distribution Width 12.9 % (12.1-15.2)
[2024-12-22 13:24] LABS: PT Prothrombin Time 13.1 SECONDS (10.0-13.0); Protime INR 1.16
[2024-12-22 13:26] LABS: ALT/SGPT 17 U/L (13-56); AST/SGOT 30 U/L (15-37); Albumin 2.5 g/dL (3.4-5.0); Albumin/Globulin Ratio 0.6 (1.1-1.8); Alkaline Phosphatase 99 U/L (45-117); Anion Gap 9.1 mEq/L (5.0-15.0); BUN Blood Urea Nitrogen 15 mg/dL (7-18); Bicarbonate 28 mEq/L (21-32); Bilirubin Total 0.5 mg/dL (0.2-1.0); Glomerular Filtration Rate 89 ml/min (=/>90); Glucose Level 94 mg/dL (74-106); Magnesium 2.3 mg/dL (1.6-2.4); NT PRO-BNP 159 pg/mL (<450); Potassium 3.1 mEq/L (3.5-5.1); Protein, Total 6.5 g/dL (6.4-8.2); Sodium Level 140 mEq/L (136-145); Troponin High Sensitivity 10.7 pg/mL (<58.9)
[2024-12-22 13:28] LABS: Bilirubin Direct < 0.2 mg/dL (0-0.2); Bilirubin Indirect, Calculated 0.3 mg/dL (0.2-0.8)
--- NOTE | 2024-12-22 13:45 | RAD REPORT ---
EXAMINATION: ONE VIEW CHEST XR CLINICAL INDICATION: Female, 84 years old.,COUGH TECHNIQUE: Frontal chest projection is submitted. Examination is limited by patient positioning and t echnique. COMPARISON: 12/16/2024 FINDINGS: The lungs are well inflated and clear of new opacities. Stable chronic diffuse interstitial thickenin g, may reflect emphysematous or fibrotic changes. Elevation of the left hemidiaphragm again seen.. No pneumothorax or sizable effusion. The heart is normal in size. Mediastinal contours are unremarkab le. IMPRESSION: No acute intrathoracic abnormalities. Stable findings as above.
--- NOTE | 2024-12-22 13:47 | RAD REPORT ---
EXAMINATION: XR PELVIS CLINICAL INDICATION: Female, 84 years old. [facility] MA[facility] PA[facility] Bed Name: 19 TECHNIQUE: AP Pelvis radiograph was obtained. COMPARISON: 12/16/2024 FINDINGS: No evidence of acute fracture or dislocation. Left total hip arthroplasty in satisfactory a lignment with progressive healing along the fracture fragments of the proximal left femoral shaft. Normal alignment. No evidence of AVN. Soft tissues are unremarkable. IMPRESSION: Progressive healing hyperesthetic fracture along the proximal femoral shaft as above.
--- NOTE | 2024-12-22 13:51 | RAD REPORT ---
EXAMINATION: Hip Left 2 View CLINICAL INDICATION: Female, 84 years old. [facility] PA[facility] Bed Name: 19 TECHNIQUE: 2 view radiograph of the left hip were obtained. COMPARISON: CT left hip 12/22/2024 and left femur radiographs 12/16/2024 FINDINGS: Stable alignment with changes of early partial healing of mildly comminuted periprosthetic fracture along the proximal left femoral shaft. No other acute fractures. Prosthesis is otherwise well situated. Stable mild periarticular soft tissue swelling. IMPRESSION: Stable alignment with changes of early partial healing of mildly comminuted periprosthetic fracture o f the proximal left femoral shaft
[2024-12-22 15:00] LABS: Platelet Estimate ADEQ; White Blood Cell Scan OK (OK)
[2024-12-22 15:01] LABS: Anisocytosis 1+; Blood Morphology Comment NOTED (NOT SEEN); Poikilocytosis 1+; Polychromasia 1+
--- NOTE | 2024-12-22 16:07 | ER ---
Nurse's Notes [facility] Name: Renetta Zhao Age: 84 yrs Sex: Female : 1940 Arrival Date: 12/22/2024 Time: 11:32 Bed 19 Private MD: Diagnosis: Pain in left hip-periprosthetic fx proximal fracture Presentation: 12/22 11:42 Chief complaint: EMS states: was released from [facility] with left hip fx aa5 yesterday and needs rehab, was unable to be admitted to [facility] for rehab due to problem with physician order. Unable to take care of herself at home. 11:42 Coronavirus screen: At this time, the client does not indicate any symptoms associated aa5 with coronavirus-19. Ebola Screen: Patient denies travel to an Ebola-affected area in the 21 days before illness onset. Initial Sepsis Screen: Does the patient meet any 2 criteria? No. Patient's initial sepsis screen is negative. Does the patient have a suspected source of infection? No. Patient's initial sepsis screen is negative. Risk Assessment: Do you want to hurt yourself or someone else? Patient reports no desire to harm self or others. Onset of symptoms was December 22, 2024. 11:42 Acuity: MELL 3 aa5 11:42 Method Of Arrival: EMS: [facility] aa5 Historical: - Allergies: 11:42 Codeine; aa5 11:42 Sulfa (Sulfonamide Antibiotics); aa5 - PMHx: 13:03 Breast Cancer; "high eye pressure"; aa5 - PSHx: 11:42 Left hip replacement; aa5 13:03 Double mastectomy; cataracts; aa5 - Family history:: not pertinent. Screenin:42 [facility] ED Fall Risk Assessment (Adult) History of falling in the last 3 months, aa5 including since admission Yes- single mechanical fall (1 pt) Confusion or Disorientation No (0 pts) Intoxicated or Sedated No (0 pts) Impaired Gait Yes (1 pt) Mobility Assist Device Used Yes (1 pt) Altered Elimination No (0 pt) Score/Fall Risk Level 3 or more points = High Risk Oriented to surroundings, Maintained a safe environment, Educated pt \\T\\ family on fall prevention, incl call for assistance when getting out of bed, Assessed \\T\\ reinforced patient's understanding of fall precautions. Abuse screen: Denies threats or abuse. Nutritional screening: No deficits noted. Tuberculosis screening: No symptoms or risk factors identified. Assessment: 11:42 General: Appears comfortable, Behavior is calm, cooperative. Pain: Complains of pain in aa5 left hip Pain currently is 0 out of 10 on a pain scale. Aggravated by movement. Neuro: Level of Consciousness is awake, alert, obeys commands, Oriented to person, place, time, situation. Cardiovascular: Heart tones S1 S2 present Patient's skin is warm and dry. Rhythm is regular. Respiratory: Airway is patent Respiratory effort is even, unlabored, Respiratory pattern is regular, symmetrical. GI: No signs and/or symptoms were reported involving the gastrointestinal system. : No signs and/or symptoms were reported regarding the genitourinary system. EENT: No signs and/or symptoms were reported regarding the EENT system. Derm: Skin is pink, warm \\T\\ dry. Musculoskeletal: Reports left hip fx. 12:15 Reassessment: Pt to CT . aa5 13:00 Reassessment: Patient is alert, oriented x 3, equal unlabored respirations, skin aa5 warm/dry/pink. 14:00 Reassessment: Pt cleaned of urine, clean brief applied, placed on purewick to suction aa5 for elimination needs. . 17:35 Reassessment: Patient is alert, oriented x 3, equal unlabored respirations, skin aa5 warm/dry/pink. Patient denies pain at this time. 19:00 Reassessment: Patient is alert, oriented x 3, equal unlabored respirations, skin aa5 warm/dry/pink. 19:00 Pain: Pain currently is 1 out of 10 on a pain scale. aa5 Vital Signs: 11:42 BP 157 / 63; Pulse 88; Resp 18 S; Temp 97.2(TE); Pulse Ox 97% on R/A; aa5 14:00 BP 163 / 74; Pulse 90; Resp 18 S; Pulse Ox 99% on R/A; aa5 17:35 BP 169 / 70; Pulse 88; Resp 16 S; Pulse Ox 96% on R/A; aa5 19:00 BP 154 / 64; Pulse 94; Resp 16 S; Pulse Ox 96% on R/A; aa5 ED Course: 11:42 Patient arrived in ED. aa5 11:42 Marianela Sanabria, RN is Primary Nurse. aa5 11:42 Arm band placed on Patient placed in an exam room, on a stretcher. aa5 11:42 Patient has correct armband on for positive identification. Bed in low position. Call aa5 light in reach. Side rails up X2. Pulse ox on. NIBP on. Cardiac monitoring not available, MD aware. 11:47 Gulshan Read MD is Attending Physician. arthur 12:22 Triage completed. aa5 12:24 Hip Left Wo Con In Process Unspecified. EDMS 12:54 XRAY Chest (1 view) In Process Unspecified. EDMS 12:54 Hip Left 2 View XRAY In Process Unspecified. EDMS 12:54 Pelvis XRAY In Process Unspecified. EDMS 12:57 Initial lab(s) drawn, by me, sent to lab. Inserted saline lock: 22 gauge in right aa5 antecubital area, using aseptic technique. Blood collected. Flushed with 10 mL NS. 16:04 initiated transfer with Mell Mishra at [facility] . [facility] 17:16 patient was accepted to [facility] ER Report# [id number] to Petr Wilson vk \\[id number] Per Mell mishra RN. 18:06 initiated transfer with EMS spoke with Ruel accepted patient advised 15 mins for [employer]\\[id number]. 19:00 No provider procedures requiring assistance completed. Patient transferred, IV remains aa5 in place. Administered Medications: 13:02 Drug: NS 0.9% IV 500 ml 500 ml IV at 1 bolus once; to be given as a bolus over 30 aa5 minutes Volume: 500 ml; Route: IV; Rate: 1 bolus; Site: right antecubital; 13:32 Follow up: IV Status: Completed infusion; IV Intake: 500ml aa5 18:52 Drug: fentaNYL (PF) IVP 50 mcg IVP once Route: IVP; Site: right antecubital; aa5 19:00 Follow up: Response: No adverse reaction aa5 18:52 Drug: Ondansetron IVP 4 mg IVP once; over 2 minutes Route: IVP; Site: right antecubital;aa5 19:00 Follow up: Response: No adverse reaction aa5 Medication: 13:04 VIS not applicable for this client. aa5 Intake: 13:32 IV: 500ml; Total: 500ml. aa5 Outcome: 16:06 ER care complete, transfer ordered by MD. gibson 19:00 Transferred by ground EMS to [facility], Transfer form completed. X-rays sent aa5 w/ patient. 19:00 Condition: stable 19:00 Instructed on the need for transfer, Demonstrated understanding of instructions, 19:02 Patient left the ED. iw Signatures: Dispatcher [employer] EDGulshan Tillman MD MD cha Williams, Irene, RN RN Marianela Jones RN RN aa5 Teresa Lovett Vivian vk
--- NOTE | 2024-12-22 16:07 | EDPHYS ---
Physician Documentation [facility] Name: Renetta Zhao Age: 84 yrs Sex: Female : 1940 Arrival Date: 12/22/2024 Time: 11:32 Bed 19 Private MD: ED Physician Gulshan Read HPI: 12/22 15:50 This 84 yrs old Female presents to ER via EMS with complaints of Needs rehab arthur for hip fx. 15:50 The patient or guardian reports decreased range of motion, pain, swelling. sustained arthur from a fall. The complaints affect the pelvis and left hip. Modifying factors: The symptoms are alleviated by remaining still, the symptoms are aggravated by any movement. Associated signs and symptoms: Loss of consciousness: the patient experienced no loss of consciousness. Severity of symptoms: At their worst the symptoms were moderate, in the emergency department the symptoms are unchanged. The patient has not experienced similar symptoms in the past. Historical: - Allergies: 11:42 Codeine; aa5 11:42 Sulfa (Sulfonamide Antibiotics); aa5 - PMHx: 13:03 Breast Cancer; "high eye pressure"; aa5 - PSHx: 11:42 Left hip replacement; aa5 13:03 Double mastectomy; cataracts; aa5 - Family history:: not pertinent. ROS: 15:50 Constitutional: Negative for fever, chills, and weight loss, Eyes: Negative for injury, arthur pain, redness, and discharge, ENT: Negative for injury, pain, and discharge, Neck: Negative for injury, pain, and swelling, Cardiovascular: Negative for chest pain, palpitations, and edema, Respiratory: Negative for shortness of breath, cough, wheezing, and pleuritic chest pain, Abdomen/GI: Negative for abdominal pain, nausea, vomiting, diarrhea, and constipation, Back: Negative for injury and pain, : Negative for injury, bleeding, discharge, and swelling, Skin: Negative for injury, rash, and discoloration, Neuro: Negative for headache, weakness, numbness, tingling, and seizure, Psych: Negative for depression, anxiety, suicide ideation, homicidal ideation, and hallucinations, Allergy/Immunology: Negative for hives, rash, and allergies, Endocrine: Negative for neck swelling, polydipsia, polyuria, polyphagia, and marked weight changes, Hematologic/Lymphatic: Negative for swollen nodes, abnormal bleeding, and unusual bruising, 15:50 MS/extremity: Positive for decreased range of motion, pain, tenderness, of the left upper thigh, Exam: 15:50 Constitutional: This is a well developed, well nourished patient who is awake, alert, arthur and in no acute distress. Head/Face: Normocephalic, atraumatic. Eyes: Pupils equal round and reactive to light, extra-ocular motions intact. Lids and lashes normal. Conjunctiva and sclera are non-icteric and not injected. Cornea within normal limits. Periorbital areas with no swelling, redness, or edema. ENT: Nares patent. No nasal discharge, no septal abnormalities noted. Tympanic membranes are normal and external auditory canals are clear. Oropharynx with no redness, swelling, or masses, exudates, or evidence of obstruction, uvula midline. Mucous membranes moist. Neck: Trachea midline, no thyromegaly or masses palpated, and no cervical lymphadenopathy. Supple, full range of motion without nuchal rigidity, or vertebral point tenderness. No Meningismus. Chest/axilla: Normal chest wall appearance and motion. Nontender with no deformity. No lesions are appreciated. Cardiovascular: Regular rate and rhythm with a normal S1 and S2. No gallops, murmurs, or rubs. Normal PMI, no JVD. No pulse deficits. Respiratory: Lungs have equal breath sounds bilaterally, clear to auscultation and percussion. No rales, rhonchi or wheezes noted. No increased work of breathing, no retractions or nasal flaring. Abdomen/GI: Soft, non-tender, with normal bowel sounds. No distension or tympany. No guarding or rebound. No evidence of tenderness throughout. Back: No spinal tenderness. No costovertebral tenderness. Full range of motion. Female : Normal external genitalia. Skin: Warm, dry with normal turgor. Normal color with no rashes, no lesions, and no evidence of cellulitis. Neuro: Awake and alert, GCS 15, oriented to person, place, time, and situation. Cranial nerves II-XII grossly intact. Motor strength 5/5 in all extremities. Sensory grossly intact. Cerebellar exam normal. Normal gait. Psych: Awake, alert, with orientation to person, place and time. Behavior, mood, and affect are within normal limits. 15:50 Musculoskeletal/extremity: ROM: limited active range of motion due to pain, limited passive range of motion due to pain, Circulation is intact in all extremities. the left hip and left upper thigh Compartment Syndrome exam of affected extremity: is normal. Weight bearing: is unable to bear weight, DVT Exam: no swelling, no tenderness, negative Homans' sign noted on exam, no appreciated bluish discoloration, no erythema, no increased warmth, pain, tenderness, Vital Signs: 11:42 BP 157 / 63; Pulse 88; Resp 18 S; Temp 97.2(TE); Pulse Ox 97% on R/A; aa5 14:00 BP 163 / 74; Pulse 90; Resp 18 S; Pulse Ox 99% on R/A; aa5 17:35 BP 169 / 70; Pulse 88; Resp 16 S; Pulse Ox 96% on R/A; aa5 19:00 BP 154 / 64; Pulse 94; Resp 16 S; Pulse Ox 96% on R/A; aa5 MDM: 11:47 Medical Screening Exam initiated [facility] 16:01 Differential diagnosis: hip fracture, intertrochanteric fracture, femoral neck arthur fracture, femoral shaft fracture, bursitis, arthritis, strain. Data reviewed: vital signs, nurses notes, lab test result(s), EKG, radiologic studies, CT scan, plain films. Consideration of Admission/Observation Escalation of care including admission/observation considered. I considered the following discharge prescriptions or medication management in the emergency department Medications were administered in the Emergency Department. See MAR. Independent interpretation of the following test(s) in the Emergency Department X-Ray: My interpretation is left hip, fx. CT Scan: My interpretation is hip fx. Test considered but Not performed: Ultrasound no venous doppler. Historians other than the Patient: EMS: ems well informed. Care significantly affected by the following chronic conditions: Cancer, glaucoma. Counseling: I had a detailed discussion with the patient and/or guardian regarding the historical points, exam findings, and any diagnostic results supporting the discharge/admit diagnosis, lab results, radiology results, the need to transfer to another facility, for higher level of care, [facility] does not immediately have the required specialist. 16:06 ED course: dr jose francisco metcalf will not follow , this type of fracture. [facility] 12/22 11:48 Order name: Basic Metabolic Panel; Complete Time: 15:22 [facility] 12/22 11:48 Order name: CBC with Diff; Complete Time: 15:22 [facility] 12/22 11:48 Order name: LFT's; Complete Time: 15:22 [facility] 12/22 11:48 Order name: Magnesium; Complete Time: 15:22 [facility] 12/22 11:48 Order name: NT PRO-BNP; Complete Time: 15:22 [facility] 12/22 11:48 Order name: PT-INR; Complete Time: 15:22 [facility] 12/22 11:48 Order name: Troponin HS; Complete Time: 15:22 [facility] 12/22 13:14 Order name: CBC Smear Scan; Complete Time: 15:22 [facility] 12/22 11:48 Order name: XRAY Chest (1 view); Complete Time: 15:22 [facility] 12/22 11:48 Order name: Hip Left 2 View XRAY; Complete Time: 15:22 [facility] 12/22 11:48 Order name: Pelvis XRAY; Complete Time: 15:22 [facility] 12/22 12:03 Order name: Hip Left Wo Con; Complete Time: 13:07 [facility] 12/22 11:48 Order name: EKG - Nurse/Tech; Complete Time: 12:58 [facility] 12/22 11:48 Order name: IV Saline Lock; Complete Time: 13:02 [facility] 12/22 11:48 Order name: Labs collected and sent; Complete Time: 13:02 [facility] 12/22 11:48 Order name: O2 Per Protocol; Complete Time: 13:02 [facility] 12/22 11:48 Order name: O2 Sat Monitoring; Complete Time: 13:02 [facility] Administered Medications: 13:02 Drug: NS 0.9% IV 500 ml 500 ml IV at 1 bolus once; to be given as a bolus over 30 aa5 minutes Volume: 500 ml; Route: IV; Rate: 1 bolus; Site: right antecubital; 13:32 Follow up: IV Status: Completed infusion; IV Intake: 500ml aa5 18:52 Drug: fentaNYL (PF) IVP 50 mcg IVP once Route: IVP; Site: right antecubital; aa5 19:00 Follow up: Response: No adverse reaction aa5 18:52 Drug: Ondansetron IVP 4 mg IVP once; over 2 minutes Route: IVP; Site: right antecubital;aa5 19:00 Follow up: Response: No adverse reaction aa5 Disposition Summary: 12/22/24 16:06 Transfer Ordered Notes: Transfer Location: [facility] arthur Reason: Higher level of care arthur Condition: Fair arthur Problem: new arthur Symptoms: have improved arthur Accepting Physician: to [facility](12/22/24 19:02) iw Diagnosis - Pain in left hip - periprosthetic fx proximal fracture arthur Forms: - Medication Reconciliation Form arthur - SBAR form arthur Signatures: Dispatcher [employer] EDMS Gulshan Read MD MD cha Williams, Irene, RN RN iw Marianela Sanabria RN RN aa5 Jennifer Acosta PA-C PAShiela sb4 Corrections: (The following items were deleted from the chart) 11:49 11:49 BASIC METABOLIC PANEL+C.LAB.BRZ ordered. EDMS EDMS 11:49 11:49 CBC+H.LAB.BRZ ordered. EDMS EDMS 11:49 11:49 HEPATIC FUNCTION+C.LAB.BRZ ordered. EDMS EDMS 11:49 11:49 MAGNESIUM+C.LAB.BRZ ordered. EDMS EDMS 11:49 11:49 PROBNP+C.LAB.BRZ ordered. EDMS EDMS 11:49 11:49 PROTIME (+INR)+COAG.LAB.BRZ ordered. EDMS EDMS 11:49 11:49 Troponin High Sensitivity+C.LAB.BRZ ordered. EDMS EDMS 11:49 11:49 Chest Single View+RAD.RAD.BRZ ordered. EDMS EDMS 11:49 11:49 Hip Left 2 View+RAD.RAD.BRZ ordered. EDMS EDMS 11:49 11:49 Pelvis+RAD.RAD.BRZ ordered. EDMS EDMS 12:03 12:00 CT LEFT HIP WO CONTRAST ordered. EDMS EDMS 19:02 16:06 to [facility] arthur iw
[2024-12-22] MEDS ORDERED: FENTANYL CITR 100 MCG/2 ML ONE (18:49)
[2024-12-22] MEDS ORDERED: ONDANSETRON 4 MG/2 ML VIAL ONE (18:49)
[2024-12-22 19:15] VITALS: BP 157/63; TEMP 97.2; O2SAT 97
== END 2024-12-22 19:02 | disposition short-term general hospital (02) ==
LOC: ER 11:32
DX: M25.552 Pain in left hip (principal); S72.002S Fracture of unspecified part of neck of left femur, sequela; M97.02XS Periprosthetic fracture around internal prosthetic left hip joint, sequela
CPT/HCPCS: 93005; 85025; 80048; 36415; 83735; 85610; 80076; 84484; 83880; 73700; 71045; 72170; 73502; 96375; 96374; 99285; J3010; J2405; J7040